=== PATIENT | male | born 1970 | race Caucasian/White ===

== ENCOUNTER 2017-05-05 07:33 | Emergency (ER) | payer SELFPAY ==
[2017-05-05 07:55] VITALS: TEMP 100.4; O2SAT 97
[2017-05-05] MEDS ORDERED: ACETAMINOPHEN 500 MG TAB ONE (07:57)
[2017-05-05] MEDS ORDERED: IBUPROFEN 600 MG TAB PO ONE (07:57)
--- NOTE | 2017-05-05 08:09 | EDPHY ---
H & P Time Seen by Provider: 05/05/17 07:49 HPI/ROS: This patient complains of a 3 day history of fevers, myalgias and coughing. He has associated nasal congestion. He reports associated fatigue in addition. He complains of difficulty sleeping due to the frequent coughing. He describes a burning pain in his chest when he coughs but denies pleuritic pain. He does report mild dyspnea associated with the symptoms. He has associated chills. His brought him in by private vehicle for evaluation. He reports partial improvement from antipyretics but has not had anything except 200 mg of ibuprofen this morning prior to arrival. No other exacerbating or alleviating factors are noted. ROS: Constitutional: Fevers chills and fatigue as per HPI HEENT: He reports 10 day history of intermittent pressure in his left ear and a swishing sound at times. He has associated diminished hearing left ear over the same period of time. No right ear symptoms. No sore throat. No facial pain. Pulmonary: No hemoptysis. Cardiovascular: No leg swelling or pain. No lightheadedness. No chest pain at baseline. GI: No nausea vomiting diarrhea. : No complaints Integumentary: No complaints Endocrine: No complaints 10 point ROS is otherwise negative Past Medical/Surgical History: Reviewed Social History: No drug use. Current his as URI symptoms. Smoking Status: Former smoker Physical Exam: Physical Exam Vital signs are normal. General: No acute distress HEENT: Nose: Clear discharge bilaterally. No sinus tenderness to percussion. Ears: External canals and tympanic membranes are clear with no erythema or abnormal findings bilaterally. Oropharynx: No erythema or exudates. No dysphonia. No drooling or stridor. Eyes: Pupils equal and react to light. Extraocular motions are intact. Neck: Supple with no meningismus. No lymphadenopathy Lungs: Mild rales right midlung field. Clear to auscultation on the left. No wheezing is appreciated. No rhonchi. Cardiac: Regular rate and rhythm with no murmur gallop or rub. No peripheral edema. Skin: No rash or pallor. Neuro: Alert with no focal deficits noted. Initial differential diagnosis: Influenza, influenza like illness, pneumonia, URI with cough and fever with atelectasis, Constitutional: Initial Vital Signs Temperature (C) 38 C 05/05/17 07:53 Heart Rate 90 05/05/17 07:53 Respiratory Rate 20 05/05/17 07:53 Blood Pressure 136/66 H 05/05/17 07:53 O2 Sat (%) 97 05/05/17 07:53 O2 Delivery Mode Room Air Allergies/Adverse Reactions: No Known Allergies Allergy (Unverified 05/05/17 07:52) Home Medications: Medication Instructions Recorded Benzonatate [Tessalon Pearles (RX)] 100 - 200 mg PO TID PRN #20 cap 05/05/17 Fluticasone Nasal [Flonase Nasal 2 sprays NASAL DAILY #1 mdi 05/05/17 [place]] Hgc 05/05/17 Oseltamivir Phosphate [Tamiflu 75 75 mg PO BID #10 cap 05/05/17 mg (*)] Testosterone 05/05/17 MDM/Departure - MDM Diagnostics: Two view chest x-ray: Streaky atelectasis at the base and mild airway disease by my interpretation. I do not appreciate focal infiltrates. Rapid flu swab is positive for influenza B ED Course/Re-evaluation: Flu swab, ibuprofen p.o. Patient is sent for chest x-ray I counseled the patient regarding influenza. Given he is within the 1st 48 hr of the illness he would like to try Tamiflu. I counseled regarding potential side effects. Patient also has serous otitis on the left side primarily by history. Clinically, he does not have sepsis or other complicating factors. - Depart Disposition: Home, Routine, Self-Care Clinical Impression: Influenza B Serous otitis media Qualifiers: Chronicity: acute Laterality: left Recurrence: not specified as recurrent Qualified Code(s): H65.02 - Acute serous otitis media, left ear Condition: Good Instructions: Influenza (ED), Serous Otitis Media (ED) Additional Instructions: Diagnosis: 1. Influenza B 2. Serous otitis Plan: Humidifier Flonase steroid nasal spray Consider Tamiflu Ibuprofen-600 mg per 6 hr while awake for aches and fevers Tessalon Perles cough suppressant for cough prevents sleep. Return for any significant worsening despite the treatment plan. Prescriptions: Benzonatate [Tessalon Pearles (RX)] 100 - 200 mg PO TID PRN #20 cap PRN Reason: cough Oseltamivir Phosphate [Tamiflu 75 mg (*)] 75 mg PO BID #10 cap Referrals: Bekah Snyder MD [Primary Care Provider] - As per Instructions
[2017-05-05 09:51] VITALS: BP 133/76; PULSE 87; RESP 18
== END 2017-05-05 08:50 | disposition home or self-care (01) ==
LOC: CED 07:33
DX: J10.1 Influenza due to other identified influenza virus with other respiratory manifestations (principal); H65.02 Acute serous otitis media, left ear; Z87.891 Personal history of nicotine dependence
CPT/HCPCS: 71046-PO; 87400-PO